=== PATIENT | female | born 1990 | race Caucasian/White ===

== ENCOUNTER 2017-06-20 17:14 | Inpatient (IN) | payer MEDICAID ==
[~2017-06-20] VITALS: Ht 167.6 cm; Wt 55.8 kg
[2017-06-20] MEDS ORDERED: MORPHINE SULFATE 4 MG/ML, 1ML IVPush PRN (18:00)
[2017-06-20] MEDS ORDERED: ONDANSETRON 2MG/ML, 2ML IVPush ONE (18:00)
[2017-06-20] MEDS ORDERED: FAMOTIDINE 20 MG/2 ML IVP ONE (18:00)
[2017-06-20] MEDS ORDERED: SODIUM CHLORIDE FLUSH 10ML SYR IVF ONE (18:00)
[2017-06-20] MEDS ORDERED: SODIUM CHLORIDE 0.9% 1,000ML IVBOLUS ONE ×2 (18:00→19:00)
[2017-06-20] MEDS ORDERED: FAMOTIDINE 20 MG/2 ML ONE (18:06)
[2017-06-20] MEDS ORDERED: ONDANSETRON 2MG/ML, 2ML ONE ×2 (18:06→20:26)
[2017-06-20 18:30] LABS: HEMATOCRIT 40.6 % (34.6-47.8); HEMOGLOBIN 14.3 g/dL (11.7-16.4); WHITE BLOOD COUNT 8.1 x10^3/uL (3.4-10)
[2017-06-20 18:43] LABS: ASPARTATE AMINO TRANSFERASE 33 U/L (15-37); BLOOD UREA NITROGEN 9 mg/dL (7-18)
[2017-06-20] MEDS ORDERED: SODIUM CHLORIDE 0.9% 1,000 ML IV ONE (18:57)
[2017-06-20] MEDS ORDERED: HYDROmorphone 1 MG/ML, 1ML IVPush PRN (19:00)
[2017-06-20] MEDS ORDERED: HYDROmorphone 1 MG/ML, 1ML ONE (19:06)
[2017-06-20] MEDS ORDERED: METOCLOPRAMIDE 5 MG/ML, 2ML IVPush PRN (19:30)
[2017-06-20] MEDS ORDERED: PROMETHAZINE 25 MG/ML, 1ML IM PRN (19:30)
[2017-06-20] MEDS ORDERED: ENOXAPARIN 40 MG/0.4 ML SQ SCH (19:30)
[2017-06-20] MEDS ORDERED: THIAMINE 200 MG in SODIUM CHLORIDE 0.9% 50 ML IV ONE (20:00)
[2017-06-20] MEDS ORDERED: LORazepam 2 MG/ML, 1ML IV PRN ×4 (20:00)
[2017-06-20] MEDS: ONDANSETRON 2MG/ML, 2ML IVPush PRN (20:28)
[2017-06-20] MEDS ORDERED: NICOTINE 14MG/24 HR PATCH.TD24 ONE (20:42)
[2017-06-20] MEDS: NICOTINE 14MG/24 HR PATCH.TD24 TD SCH (20:44)
[2017-06-20] MEDS: LORazepam 2 MG/ML, 1ML IV PRN (21:57)
[2017-06-20 22:00] VITALS: BP 122/82
[2017-06-20] MEDS: SODIUM CHLORIDE 0.9% 1,000 ML IV SCH (23:45)
[2017-06-20] MEDS: HYDROmorphone 2 MG/ML, 1ML IVPush PRN (23:56)
[2017-06-21 01:43] VITALS: BP 106/66
[2017-06-21] MEDS: FOLIC ACID 1 MG, THIAMINE 100 MG, MVI ADULT 10 ML in DEXTROSE 5% 1,000 ML IV SCH (02:15)
[2017-06-21] MEDS: SODIUM CHLORIDE 0.9% 1,000 ML IV SCH ×3 (03:24→19:34)
[2017-06-21 05:54] LABS: BLOOD UREA NITROGEN 7 mg/dL (7-18)
[2017-06-21 05:56] LABS: HEMATOCRIT 38.6 % (34.6-47.8); HEMOGLOBIN 13.1 g/dL (11.7-16.4); WHITE BLOOD COUNT 5.5 x10^3/uL (3.4-10)
[2017-06-21 06:10] LABS: ASPARTATE AMINO TRANSFERASE 23 U/L (15-37)
[2017-06-21 07:26] VITALS: BP 104/68
[2017-06-21] MEDS: HYDROmorphone 2 MG/ML, 1ML IVPush PRN ×3 (08:39→19:34)
[2017-06-21] MEDS: ONDANSETRON 2MG/ML, 2ML IVPush PRN (11:12)
[2017-06-21 13:18] VITALS: BP 113/70
[2017-06-21] MEDS: LORazepam 2 MG/ML, 1ML IV PRN (17:21)
[2017-06-21 19:29] VITALS: BP 131/83
[2017-06-21] MEDS: ENOXAPARIN 40 MG/0.4 ML SQ SCH (19:35)
[2017-06-21] MEDS: NICOTINE 14MG/24 HR PATCH.TD24 TD SCH (19:35)
[2017-06-22 01:17] VITALS: BP 115/73
[2017-06-22] MEDS: FOLIC ACID 1 MG, THIAMINE 100 MG, MVI ADULT 10 ML in DEXTROSE 5% 1,000 ML IV SCH (01:20)
[2017-06-22] MEDS: SODIUM CHLORIDE 0.9% 1,000 ML IV SCH ×2 (01:21→19:26)
[2017-06-22] MEDS: HYDROmorphone 2 MG/ML, 1ML IVPush PRN ×4 (01:21→23:02)
[2017-06-22 05:56] LABS: ASPARTATE AMINO TRANSFERASE 19 U/L (15-37); BLOOD UREA NITROGEN 5 mg/dL (7-18)
[2017-06-22 07:07] VITALS: BP 112/75
[2017-06-22] MEDS ORDERED: POTASSIUM CHLORIDE 40 MEQ in SODIUM CHLORIDE 0.9% 500 ML IV ONE (08:00)
[2017-06-22] MEDS: ONDANSETRON 2MG/ML, 2ML IVPush PRN (11:24)
[2017-06-22] MEDS: PANTOPRAZOLE 40 MG IV IVPush SCH ×2 (11:24→23:02)
[2017-06-22 12:57] VITALS: BP 135/83
[2017-06-22 19:19] VITALS: BP 128/84
[2017-06-22] MEDS: NICOTINE 14MG/24 HR PATCH.TD24 TD SCH (19:26)
[2017-06-22] MEDS: ENOXAPARIN 40 MG/0.4 ML SQ SCH (20:00)
[2017-06-23] MEDS: FOLIC ACID 1 MG, THIAMINE 100 MG, MVI ADULT 10 ML in DEXTROSE 5% 1,000 ML IV SCH (01:25)
[2017-06-23] MEDS: SODIUM CHLORIDE 0.9% 1,000 ML IV SCH ×3 (01:25→23:53)
[2017-06-23 01:32] VITALS: BP 128/82
[2017-06-23 05:26] LABS: BLOOD UREA NITROGEN 3 mg/dL (7-18)
[2017-06-23 07:45] VITALS: BP 121/80
[2017-06-23] MEDS: HYDROmorphone 2 MG/ML, 1ML IVPush PRN ×2 (08:29→22:15)
[2017-06-23] MEDS: PANTOPRAZOLE 40 MG IV IVPush SCH ×2 (10:53→22:29)
[2017-06-23 13:52] VITALS: BP 123/83
[2017-06-23] MEDS ORDERED: POTASSIUM CHLORIDE 40 MEQ in SODIUM CHLORIDE 0.9% 500 ML IV ONE (16:00)
[2017-06-23] MEDS: PANCRELIPASE 24,000 CAPSULE.DR PO SCH ×2 (17:09→21:00)
[2017-06-23 19:24] VITALS: BP 122/76
[2017-06-23] MEDS: ENOXAPARIN 40 MG/0.4 ML SQ SCH (20:00)
[2017-06-23 20:18] VITALS: BP 125/85
[2017-06-23] MEDS: NICOTINE 14MG/24 HR PATCH.TD24 TD SCH (22:16)
[2017-06-24 04:13] VITALS: BP 126/58
[2017-06-24] MEDS: SODIUM CHLORIDE 0.9% 1,000 ML IV SCH ×3 (05:25→21:30)
[2017-06-24 05:31] LABS: BLOOD UREA NITROGEN 4 mg/dL (7-18)
[2017-06-24] MEDS: HYDROmorphone 2 MG/ML, 1ML IVPush PRN ×3 (05:31→18:35)
[2017-06-24 07:03] VITALS: BP 116/74
[2017-06-24] MEDS: PANCRELIPASE 24,000 CAPSULE.DR PO SCH ×3 (08:41→21:00)
[2017-06-24] MEDS: PANTOPRAZOLE 40 MG IV IVPush SCH ×2 (10:26→22:18)
[2017-06-24] MEDS ORDERED: BISACODYL 10 MG SUPP PR PRN (10:30)
[2017-06-24] MEDS ORDERED: POTASSIUM CHLORIDE 40 MEQ in SODIUM CHLORIDE 0.9% 500 ML IV ONE (10:30)
[2017-06-24 14:35] VITALS: BP 130/85
[2017-06-24] MEDS: ENOXAPARIN 40 MG/0.4 ML SQ SCH (20:00)
[2017-06-24] MEDS: NICOTINE 14MG/24 HR PATCH.TD24 TD SCH (20:32)
[2017-06-24 20:59] VITALS: BP 123/80
[2017-06-25 01:56] VITALS: BP 121/80
[2017-06-25] MEDS: SODIUM CHLORIDE 0.9% 1,000 ML IV SCH ×3 (03:39→21:27)
[2017-06-25 05:59] LABS: ASPARTATE AMINO TRANSFERASE 18 U/L (15-37); BLOOD UREA NITROGEN 3 mg/dL (7-18)
[2017-06-25 07:35] VITALS: BP 144/90
[2017-06-25] MEDS ORDERED: POTASSIUM CHLORIDE 40 MEQ in SODIUM CHLORIDE 0.9% 500 ML IV ONE (08:30)
[2017-06-25] MEDS: PANCRELIPASE 24,000 CAPSULE.DR PO SCH ×3 (10:12→21:27)
[2017-06-25] MEDS: LORazepam 2 MG/ML, 1ML IVPush PRN ×2 (10:21→17:32)
[2017-06-25] MEDS: PANTOPRAZOLE 40 MG IV IVPush SCH ×2 (11:41→22:29)
[2017-06-25 14:30] VITALS: BP 125/86
[2017-06-25 19:59] VITALS: BP 120/81
[2017-06-25] MEDS: ENOXAPARIN 40 MG/0.4 ML SQ SCH (20:00)
[2017-06-25] MEDS: NICOTINE 14MG/24 HR PATCH.TD24 TD SCH (20:12)
[2017-06-25] MEDS: HYDROmorphone 2 MG/ML, 1ML IVPush PRN (22:34)
[2017-06-26 02:12] VITALS: BP 114/69
[2017-06-26] MEDS: SODIUM CHLORIDE 0.9% 1,000 ML IV SCH ×3 (04:17→12:42)
[2017-06-26 05:22] LABS: BLOOD UREA NITROGEN 2 mg/dL (7-18)
[2017-06-26 05:27] LABS: ASPARTATE AMINO TRANSFERASE 17 U/L (15-37)
[2017-06-26 07:12] VITALS: BP 143/93
[2017-06-26] MEDS: PANCRELIPASE 24,000 CAPSULE.DR PO SCH ×3 (08:26→16:59)
[2017-06-26] MEDS: LORazepam 2 MG/ML, 1ML IV PRN (10:23)
[2017-06-26] MEDS: PANTOPRAZOLE 40 MG IV IVPush SCH ×2 (10:23→23:34)
[2017-06-26] MEDS ORDERED: POLYETHYLENE GLYCOL 17 GM PACKET PO PRN (13:00)
[2017-06-26 13:38] VITALS: BP 133/79
[2017-06-26] MEDS ORDERED: POTASSIUM CHLORIDE 40 MEQ in SODIUM CHLORIDE 0.9% 500 ML IV ONE (14:30)
[2017-06-26] MEDS: OXYcodone IR 5MG TABLET PO PRN ×2 (15:20→23:34)
[2017-06-26 19:41] VITALS: BP 117/75
[2017-06-26] MEDS: ENOXAPARIN 40 MG/0.4 ML SQ SCH (20:00)
[2017-06-26] MEDS: NICOTINE 14MG/24 HR PATCH.TD24 TD SCH (20:24)
[2017-06-27] MEDS: LORazepam 2 MG/ML, 1ML IVPush PRN ×3 (01:00→14:36)
[2017-06-27] MEDS ORDERED: OXYcodone IR 5MG TABLET PO PRN (01:00)
[2017-06-27 01:20] VITALS: BP 122/74
[2017-06-27 07:25] VITALS: BP 126/82
[2017-06-27] MEDS: SODIUM CHLORIDE 0.9% 1,000 ML IV SCH (07:45)
[2017-06-27] MEDS: PANTOPRAZOLE 40 MG IV IVPush SCH (09:49)
[2017-06-27] MEDS ORDERED: PANCRELIPASE 24,000 CAPSULE.DR PO ONE ×2 (10:00→13:00)
[2017-06-27 13:01] VITALS: BP 117/76
[2017-06-27] MEDS ORDERED: MULT-6 PO (13:45)
[2017-06-27] MEDS ORDERED: OXYC5TAB3 PO (13:45)
[2017-06-27] MEDS ORDERED: FOLI-17 PO (13:45)
[2017-06-27] MEDS ORDERED: THIA100T10 PO (13:45)
[2017-06-27] MEDS ORDERED: TRAM50TA2 PO (13:45)
[2017-06-27] MEDS ORDERED: NICO1PAT13 TD (13:45)
[2017-06-27] MEDS ORDERED: MAGN400T26 PO (13:45)
[2017-06-27] MEDS ORDERED: LIPA1CAP61 PO (13:45)
[2017-06-27] MEDS ORDERED: ONDA4TAB13 SL (13:45)
[2017-06-27] MEDS ORDERED: POLY17PO5 PO (13:45)
[2017-06-27] MEDS: PANCRELIPASE 24,000 CAPSULE.DR PO SCH (16:12)
== END 2017-06-27 18:00 | disposition home or self-care (01) | DRG 438 ==
LOC: ED 18:47 → EDIP 19:00 → CCU 22:52 → EDIP 22:58 → 3NE 23:35
PROVIDERS: ADMIT Internal Medicine; ATTEND Internal Medicine
DX: K85.20 Alcohol induced acute pancreatitis without necrosis or infection (principal); E43 Unspecified severe protein-calorie malnutrition; K56.7 Ileus, unspecified; E87.1 Hypo-osmolality and hyponatremia; F10.239 Alcohol dependence with withdrawal, unspecified; Z68.1 Body mass index [BMI] 19.9 or less, adult; K86.1 Other chronic pancreatitis; E87.6 Hypokalemia; Z82.49 Family history of ischemic heart disease and other diseases of the circulatory system; Z82.5 Family history of asthma and other chronic lower respiratory diseases
CPT/HCPCS: 36415; 76700; 76705; 80048; 80053; 80061; 81003; 82150; 83690; 83735; 84100; 84443; 84703; 85025; 96361; 96374; 96375; J1170; J1650; J2405; J3411; J3480; J7070; C9113; J2060; J7030; J7040; S0028

== ENCOUNTER 2017-10-14 15:44 | Emergency (ER) | payer MEDICAID ==
[~2017-10-14] VITALS: Ht 167.6 cm; Wt 56.7 kg
[~2017-10-14 15:44] MED LIST: FOLI-17 PO; LIPA1CAP61 PO; MAGN400T26 PO; MULT-6 PO; NICO-486 TD; ONDA4TAB13 SL; OXYC5TAB3 PO; POLY17PO5 PO; THIA100T10 PO; TRAM50TA2 PO
[2017-10-14] MEDS ORDERED: SODIUM CHLORIDE FLUSH 10ML SYR IVF ONE (16:30)
[2017-10-14 16:41] LABS: BASOPHILS # (AUTO) 0.04 x10^3/uL (0-0.1); BASOPHILS % (AUTO) 1 % (0-1); EOSINOPHILS # (AUTO) 0.03 x10^3/uL (0-0.4); EOSINOPHILS % (AUTO) 0 % (1-7); LYMPHOCYTES % (AUTO) 34 % (22-44); MD NO; MEAN CORPUSCULAR HEMOGLOBIN 31.2 pg (27.0-34.8); MEAN CORPUSCULAR HGB CONC 33.7 g/dL (32.4-35.8); MEAN CORPUSCULAR VOLUME 92.5 fL (80-100); MONOCYTES # (AUTO) 0.53 x10^3/uL (0.2-0.8); MONOCYTES % (AUTO) 7 % (2-9); NEUTROPHILS # (AUTO) 4.66 x10^3/uL (1.8-6.8); NEUTROPHILS % (AUTO) 59 % (42-75); PLATELET COUNT 205 x10^3/uL (130-400); RED BLOOD COUNT 5.02 x10^6/uL (3.82-5.3); RED CELL DISTRIBUTION WIDTH 16.1 % (9.6-15.2)
[2017-10-14 16:53] LABS: ALANINE AMINOTRANSFERASE 48 U/L (12-78); ALBUMIN 4.2 g/dL (3.4-5.0); ANION GAP 8 mmol/L (5-15); CALCIUM 8.3 mg/dL (8.5-10.1); CHLORIDE 108 mmol/L (98-107)
[2017-10-14 16:58] LABS: ALKALINE PHOSPHATASE 99 U/L (45-117); BILIRUBIN,TOTAL 0.3 mg/dL (0.2-1.0); CREATININE 0.78 mg/dL (0.55-1.02); TOTAL PROTEIN 8.5 g/dL (6.4-8.2)
[2017-10-14 17:12] LABS: CULTURE INDICATED? YES; MICROSCOPIC INDICATED
[2017-10-14 18:43] VITALS: BP 116/78
== END 2017-10-14 19:02 | disposition home or self-care (01) ==
LOC: ED 18:55
DX: N30.00 Acute cystitis without hematuria (principal); N80.9 Endometriosis, unspecified
CPT/HCPCS: 36415; 74018; 80053; 81001; 83690; 84703; 85025; 87086; 99285

== ENCOUNTER 2017-10-23 00:30 | Emergency (ER) | payer MEDICAID ==
[~2017-10-23] VITALS: Ht 167.6 cm; Wt 54.9 kg
[2017-10-23] MEDS ORDERED: METOCLOPRAMIDE 5 MG/ML, 2ML IVPush ONE (01:00)
[2017-10-23] MEDS ORDERED: SODIUM CHLORIDE FLUSH 10ML SYR IVF ONE (01:00)
[2017-10-23] MEDS ORDERED: SODIUM CHLORIDE 0.9% 1,000ML IVBOLUS ONE (01:00)
[2017-10-23] MEDS ORDERED: ONDANSETRON 2MG/ML, 2ML IVPush ONE (01:00)
[2017-10-23] MEDS ORDERED: METOCLOPRAMIDE 5 MG/ML, 2ML ONE (01:02)
[2017-10-23] MEDS ORDERED: ONDANSETRON 2MG/ML, 2ML ONE (01:02)
[2017-10-23 01:47] LABS: BASOPHILS # (AUTO) 0.02 x10^3/uL (0-0.1); BASOPHILS % (AUTO) 0 % (0-1); EOSINOPHILS # (AUTO) 0.01 x10^3/uL (0-0.4); EOSINOPHILS % (AUTO) 0 % (1-7); LYMPHOCYTES # (AUTO) 2.64 x10^3/uL (1-3.4); LYMPHOCYTES % (AUTO) 50 % (22-44); MD NO; MEAN CORPUSCULAR HEMOGLOBIN 31.3 pg (27.0-34.8); MEAN CORPUSCULAR HGB CONC 33.8 g/dL (32.4-35.8); MEAN CORPUSCULAR VOLUME 92.7 fL (80-100); MEAN PLATELET VOLUME 8.2 fL (7.4-10.4); MONOCYTES # (AUTO) 0.34 x10^3/uL (0.2-0.8); MONOCYTES % (AUTO) 7 % (2-9); NEUTROPHILS # (AUTO) 2.23 x10^3/uL (1.8-6.8); NEUTROPHILS % (AUTO) 43 % (42-75); PLATELET COUNT 201 x10^3/uL (130-400); RED BLOOD COUNT 5.08 x10^6/uL (3.82-5.3); RED CELL DISTRIBUTION WIDTH 15.4 % (9.6-15.2)
[2017-10-23 01:59] LABS: ALANINE AMINOTRANSFERASE 39 U/L (12-78); ALBUMIN 3.9 g/dL (3.4-5.0); ANION GAP 15 mmol/L (5-15); CALCIUM 8.4 mg/dL (8.5-10.1); CHLORIDE 104 mmol/L (98-107); CREATININE 0.57 mg/dL (0.55-1.02)
[2017-10-23 02:04] LABS: ALKALINE PHOSPHATASE 126 U/L (45-117); BILIRUBIN,TOTAL 0.5 mg/dL (0.2-1.0); TOTAL PROTEIN 7.8 g/dL (6.4-8.2)
[2017-10-23 04:10] VITALS: BP 149/95
[2017-10-23 04:29] LABS: MICROSCOPIC NOT IND
[2017-10-23 04:32] LABS: CULTURE INDICATED? NO
== END 2017-10-23 04:49 | disposition home or self-care (01) ==
LOC: ED 00:43
DX: R10.84 Generalized abdominal pain (principal); R11.2 Nausea with vomiting, unspecified; G89.29 Other chronic pain; K86.1 Other chronic pancreatitis; F10.129 Alcohol abuse with intoxication, unspecified
CPT/HCPCS: 36415; 80053; 81003; 83690; 84703; 85025; 96361; 96374; 96375; 99285; J2405; J2765; J7030

== ENCOUNTER 2018-04-17 23:17 | Emergency (ER) | payer MEDICAID ==
[~2018-04-17] VITALS: Ht 167.6 cm; Wt 55.0 kg
[~2018-04-17 23:17] MED LIST changes: +ACET-1600 PO; +NICO-485 TD
[2018-04-18 00:01] LABS: BASOPHILS # (AUTO) 0.03 x10^3/uL (0-0.1); BASOPHILS % (AUTO) 0 % (0-1); EOSINOPHILS # (AUTO) 0.04 x10^3/uL (0-0.4); EOSINOPHILS % (AUTO) 1 % (1-7); LYMPHOCYTES # (AUTO) 2.71 x10^3/uL (1-3.4); LYMPHOCYTES % (AUTO) 47 % (22-44); MD NO; MEAN CORPUSCULAR HEMOGLOBIN 34.9 pg (27.0-34.8); MEAN CORPUSCULAR HGB CONC 33.8 g/dL (32.4-35.8); MEAN CORPUSCULAR VOLUME 103.1 fL (80-100); MEAN PLATELET VOLUME 8.2 fL (7.4-10.4); MONOCYTES # (AUTO) 0.46 x10^3/uL (0.2-0.8); MONOCYTES % (AUTO) 8 % (2-9); NEUTROPHILS # (AUTO) 2.59 x10^3/uL (1.8-6.8); NEUTROPHILS % (AUTO) 45 % (42-75); PLATELET COUNT 220 x10^3/uL (130-400); RED BLOOD COUNT 4.15 x10^6/uL (3.82-5.3); RED CELL DISTRIBUTION WIDTH 13.9 % (9.6-15.2)
[2018-04-18 00:11] LABS: ALANINE AMINOTRANSFERASE 48 U/L (12-78); ALBUMIN 3.3 g/dL (3.4-5.0); ANION GAP 11 mmol/L (5-15); CALCIUM 8.1 mg/dL (8.5-10.1); CHLORIDE 110 mmol/L (98-107); CREATININE 0.78 mg/dL (0.55-1.02)
[2018-04-18 00:16] LABS: ALKALINE PHOSPHATASE 129 U/L (45-117); BILIRUBIN,TOTAL 0.3 mg/dL (0.2-1.0); TOTAL PROTEIN 7.3 g/dL (6.4-8.2); TROPONIN I < 0.015 ng/mL (0.000-0.045)
[2018-04-18 02:50] VITALS: BP 112/76
== END 2018-04-18 03:39 | disposition home or self-care (01) ==
LOC: ED 04-18 02:39
DX: F10.120 Alcohol abuse with intoxication, uncomplicated (principal)
CPT/HCPCS: 36415; 71045; 80053; 83690; 84484; 85025; 93005; 99285

== ENCOUNTER 2018-06-22 11:53 | Emergency (ER) | payer MEDICAID ==
[~2018-06-22] VITALS: Ht 167.6 cm; Wt 55.0 kg
[2018-06-22] MEDS ORDERED: LORazepam 2 MG/ML, 1ML ONE (11:55)
[2018-06-22] MEDS ORDERED: SODIUM CHLORIDE 0.9% 1,000 ML IV ONE (11:56)
[2018-06-22] MEDS ORDERED: LORazepam 2 MG/ML, 1ML IVPush ONE (12:00)
[2018-06-22] MEDS ORDERED: SODIUM CHLORIDE FLUSH 10ML SYR IVF ONE (12:00)
[2018-06-22] MEDS ORDERED: PLEASE ENTER HEIGHT AND WEIGHT MC SCH (12:00)
[2018-06-22 12:18] LABS: BASOPHILS # (AUTO) 0.01 x10^3/uL (0-0.1); BASOPHILS % (AUTO) 0 % (0-1); EOSINOPHILS # (AUTO) 0.01 x10^3/uL (0-0.4); EOSINOPHILS % (AUTO) 0 % (1-7); LYMPHOCYTES # (AUTO) 0.93 x10^3/uL (1-3.4); LYMPHOCYTES % (AUTO) 12 % (22-44); MD NO; MEAN CORPUSCULAR HEMOGLOBIN 35.4 pg (27.0-34.8); MEAN CORPUSCULAR HGB CONC 34.1 g/dL (32.4-35.8); MEAN CORPUSCULAR VOLUME 103.8 fL (80-100); MEAN PLATELET VOLUME 8.2 fL (7.4-10.4); MONOCYTES # (AUTO) 0.51 x10^3/uL (0.2-0.8); MONOCYTES % (AUTO) 7 % (2-9); NEUTROPHILS # (AUTO) 6.19 x10^3/uL (1.8-6.8); NEUTROPHILS % (AUTO) 81 % (42-75); PLATELET COUNT 191 x10^3/uL (130-400); RED BLOOD COUNT 4.04 x10^6/uL (3.82-5.3); RED CELL DISTRIBUTION WIDTH 16.2 % (9.6-15.2)
[2018-06-22 12:27] LABS: ALANINE AMINOTRANSFERASE 55 U/L (12-78); ALBUMIN 3.8 g/dL (3.4-5.0); ANION GAP 14 mmol/L (5-15); CALCIUM 8.8 mg/dL (8.5-10.1); CHLORIDE 107 mmol/L (98-107); CREATININE 0.85 mg/dL (0.55-1.02)
[2018-06-22 12:31] LABS: ALKALINE PHOSPHATASE 101 U/L (45-117); BILIRUBIN,TOTAL 0.8 mg/dL (0.2-1.0); TOTAL PROTEIN 7.4 g/dL (6.4-8.2)
[2018-06-22 13:46] VITALS: BP 120/81
== END 2018-06-22 13:49 | disposition home or self-care (01) ==
LOC: ED 13:00
DX: G40.309 Generalized idiopathic epilepsy and epileptic syndromes, not intractable, without status epilepticus (principal); F17.200 Nicotine dependence, unspecified, uncomplicated; Z88.0 Allergy status to penicillin; Z88.5 Allergy status to narcotic agent; Z88.6 Allergy status to analgesic agent
CPT/HCPCS: 36415; 70450; 80053; 80307; 84703; 85025; 93005; 96374; 99285; J2060; J7030

== ENCOUNTER 2018-11-21 23:00 | Emergency (ER) | payer MEDICAID ==
[~2018-11-21] VITALS: Ht 167.6 cm; Wt 57.0 kg
[2018-11-21 23:02] VITALS: BP 126/78
--- NOTE | 2018-11-21 23:41 | NUR ---
PT GIVEN DC INSTRUCTIONS. PT AMB TO DC WITH STEADY GAIT. NO ACUTE DISTRESS AT DC.
== END 2018-11-21 23:41 | disposition home or self-care (01) ==
LOC: ED 23:27
DX: S90.422A Blister (nonthermal), left great toe, initial encounter (principal); S90.421A Blister (nonthermal), right great toe, initial encounter; B35.1 Tinea unguium; J45.909 Unspecified asthma, uncomplicated; X58.XXXA Exposure to other specified factors, initial encounter; Y93.89 Activity, other specified; Y92.89 Other specified places as the place of occurrence of the external cause; Y99.8 Other external cause status
CPT/HCPCS: 99281; 99284

== ENCOUNTER 2019-08-14 05:16 | Emergency (ER) | payer MEDICAID ==
[~2019-08-14] VITALS: Ht 167.6 cm; Wt 60.1 kg
[2019-08-14] MEDS ORDERED: GABA600T7 PO (05:36)
[2019-08-14] MEDS ORDERED: ACYC-57 PO (05:36)
[2019-08-14] MEDS ORDERED: PRENATAL VITAMINS (05:36)
[2019-08-14] MEDS ORDERED: FOLIC ACID (05:36)
[2019-08-14] MEDS ORDERED: QUET25TA5 PO (05:36)
[2019-08-14] MEDS ORDERED: ACYC-114 PO (05:36)
--- NOTE | 2019-08-14 05:36 | NUR ---
REPORTS PRODUCTIVE COUGH, GREEN PHLEGM, SEVERAL DAYS, HAS FELT PERHAPS SOME FEVERS, STATES 11WEEKS , HAD US LAST WEEK AT OB OFFICE, IS SEEING A MESMERIST. NO PROBLEMS WITH BABY THIS AM
[2019-08-14 06:20] VITALS: BP 100/68
== END 2019-08-14 06:23 | disposition home or self-care (01) ==
LOC: ED 05:48
DX: J00 Acute nasopharyngitis [common cold] (principal); J45.909 Unspecified asthma, uncomplicated; F17.200 Nicotine dependence, unspecified, uncomplicated; Z88.0 Allergy status to penicillin; Z88.5 Allergy status to narcotic agent
CPT/HCPCS: 99283

== ENCOUNTER 2020-02-21 18:07 | Inpatient (IN) | payer MEDICAID ==
[~2020-02-21] VITALS: Ht 167.6 cm; Wt 75.9 kg
[~2020-02-21 18:07] MED LIST changes: +ACYC-114 PO; +ACYC-57 PO; +FOLIC ACID; +GABA600T7 PO; +PRENATAL VITAMINS; +QUET25TA5 PO
[2020-02-21] MEDS ORDERED: LACTATED RINGERS 1,000 ML IV SCH ×2 (18:28→18:45)
[2020-02-21] MEDS ORDERED: D5%-LACTATED RINGERS 1,000 ML IV SCH (18:28)
[2020-02-21] MEDS ORDERED: OXYTOCIN 30U/ 0.9% NaCL 500ML 500 ML IV ONE (18:28)
[2020-02-21] MEDS ORDERED: CALCIUM CARBONATE 500 MG TAB.CHEW PO PRN (18:30)
[2020-02-21] MEDS ORDERED: VANCOMYCIN PMX 1GM/200ML 200 ML IVPB SCH (18:30)
[2020-02-21] MEDS ORDERED: TERBUTALINE 1 MG/ML, 1ML IVPush PRN (18:30)
[2020-02-21] MEDS ORDERED: TERBUTALINE 1 MG/ML, 1ML SQ PRN (18:30)
[2020-02-21] MEDS ORDERED: FENTANYL PF 100 MCG/2ML IV PRN (18:30)
[2020-02-21] MEDS ORDERED: ONDANSETRON 2MG/ML, 2ML IVPush PRN (18:30)
[2020-02-21] MEDS ORDERED: NEWBORN KIT ONE (18:31)
[2020-02-21] MEDS ORDERED: LIDOCAINE 1%, 20ML ONE (18:31)
[2020-02-21] MEDS ORDERED: MISOPROSTOL 200 MCG TABLET ONE (18:32)
[2020-02-21] MEDS ORDERED: FENTANYL PF 100 MCG/2ML ONE ×2 (18:32→20:11)
[2020-02-21] MEDS ORDERED: OXYTOCIN 30U/ 0.9% NaCL 500ML 500 ML ONE (18:32)
[2020-02-21] MEDS ORDERED: FENTANYL/BUPIV./NS/PF 250 ML EPIDCONT SCH (18:45)
[2020-02-21] MEDS ORDERED: BUPIVACAINE 0.25% ONE ×3 (18:47→20:29)
[2020-02-21] MEDS: FENTANYL PF 100 MCG/2ML IVPush PRN ×2 (18:51→20:14)
[2020-02-21 18:59] LABS: BASOPHILS # (AUTO) 0.03 x10^3/uL (0-0.1); BASOPHILS % (AUTO) 0 % (0-1); EOSINOPHILS # (AUTO) 0.02 x10^3/uL (0-0.4); EOSINOPHILS % (AUTO) 0 % (1-7); LYMPHOCYTES # (AUTO) 1.87 x10^3/uL (1-3.4); LYMPHOCYTES % (AUTO) 20 % (22-44); MD NO; MEAN CORPUSCULAR HEMOGLOBIN 31.3 pg (27.0-34.8); MEAN CORPUSCULAR HGB CONC 33.4 g/dL (32.4-35.8); MEAN CORPUSCULAR VOLUME 93.6 fL (80-100); MEAN PLATELET VOLUME 9.7 fL (7.4-10.4); MONOCYTES # (AUTO) 0.78 x10^3/uL (0.2-0.8); MONOCYTES % (AUTO) 8 % (2-9); NEUTROPHILS # (AUTO) 6.73 x10^3/uL (1.8-6.8); NEUTROPHILS % (AUTO) 71 % (42-75); PLATELET COUNT 209 x10^3/uL (130-400); RED BLOOD COUNT 3.49 x10^6/uL (3.82-5.3); RED CELL DISTRIBUTION WIDTH 13.4 % (9.6-15.2)
[2020-02-21] MEDS ORDERED: LACTATED RINGERS 1,000 ML IVBOLUS PRN (19:00)
[2020-02-21] MEDS ORDERED: PLEASE ENTER HEIGHT AND WEIGHT MC SCH (19:00)
[2020-02-21] MEDS ORDERED: EPHEDRINE 50 MG/ML, 1ML IVPush PRN (19:00)
[2020-02-21 19:10] LABS: ALANINE AMINOTRANSFERASE 11 U/L (12-78); ALBUMIN 2.6 g/dL (3.4-5.0); ANION GAP 9 mmol/L (5-15); CALCIUM 8.4 mg/dL (8.5-10.1); CHLORIDE 110 mmol/L (98-107); CREATININE 0.62 mg/dL (0.55-1.02)
[2020-02-21 19:12] LABS: ALKALINE PHOSPHATASE 222 U/L (45-117); BILIRUBIN,TOTAL 0.3 mg/dL (0.2-1.0); TOTAL PROTEIN 6.7 g/dL (6.4-8.2)
[2020-02-21 19:18] LABS: AMPHETAMINE SCREEN, URINE Negative (Negative); BARBITURATE SCREEN, URINE Negative (Negative); BENZODIAZEPINE SCREEN, URINE Negative (Negative); CANNABINOID SCREEN, URINE Negative (Negative); COCAINE SCREEN, URINE Negative (Negative); METHADONE SCREEN, URINE Negative (Negative); OPIATE SCREEN, URINE Negative (Negative)
[2020-02-21] MEDS ORDERED: FENTANYL PF 500 MCG, BUPIVACAINE/PF 0.5%, 30ML 62.5 ML in SODIUM CHLORIDE 0.9% 177.5 ML EPIDCONT SCH (19:30)
[2020-02-22] MEDS ORDERED: FENTANYL PF 100 MCG/2ML ONE (02:51)
[2020-02-22] MEDS ORDERED: OXYTOCIN 30U/ 0.9% NaCL 500ML 500 ML ONE (03:03)
[2020-02-22] MEDS ORDERED: IBUPROFEN 600 MG TABLET ONE (03:20)
[2020-02-22] MEDS ORDERED: OXYcodone/APAP 5/325MG TABLET ONE (03:21)
[2020-02-22] MEDS: OXYcodone/APAP 5/325MG TABLET PO PRN ×2 (03:27→03:28)
[2020-02-22] MEDS: IBUPROFEN 600 MG TABLET PO PRN ×4 (03:28→22:36)
[2020-02-22] MEDS ORDERED: ACETAMINOPHEN 325 MG TABLET PO PRN (03:30)
[2020-02-22] MEDS ORDERED: ONDANSETRON 2MG/ML, 2ML IV PRN (03:30)
[2020-02-22] MEDS ORDERED: SIMETHICONE 80 MG CHEW TAB PO PRN (03:30)
[2020-02-22] MEDS ORDERED: MISOPROSTOL 200 MCG TABLET PR PRN (03:30)
[2020-02-22] MEDS: OXYTOCIN 30U/ 0.9% NaCL 500ML 500 ML IV SCH ×3 (03:30→23:20)
[2020-02-22] MEDS ORDERED: METHYLERGONOVINE 0.2 MG/ML IM PRN (03:30)
[2020-02-22 05:15] VITALS: BP 111/71
[2020-02-22] MEDS: DOCUSATE 100 MG CAPSULE PO PRN ×2 (07:29→19:49)
[2020-02-22] MEDS: FERROUS SULFATE 325 MG TABLET PO SCH (07:29)
[2020-02-22] MEDS: PRENATAL VIT/IRON/FA 1 EACH TABLET PO SCH (07:29)
[2020-02-22 07:30] VITALS: BP 100/54
[2020-02-22] MEDS: OXYcodone IR 5MG TABLET PO PRN ×4 (07:31→19:50)
[2020-02-22 10:41] LABS: MEAN CORPUSCULAR HEMOGLOBIN 30.8 pg (27.0-34.8); MEAN CORPUSCULAR HGB CONC 32.9 g/dL (32.4-35.8); MEAN CORPUSCULAR VOLUME 93.6 fL (80-100); MEAN PLATELET VOLUME 9.5 fL (7.4-10.4); PLATELET COUNT 165 x10^3/uL (130-400); RED CELL DISTRIBUTION WIDTH 13.2 % (9.6-15.2)
[2020-02-22 10:59] LABS: BASOPHILS # (AUTO) 0.03 x10^3/uL (0-0.1); BASOPHILS % (AUTO) 0 % (0-1); EOSINOPHILS # (AUTO) 0.02 x10^3/uL (0-0.4); EOSINOPHILS % (AUTO) 0 % (1-7); LYMPHOCYTES # (AUTO) 1.49 x10^3/uL (1-3.4); LYMPHOCYTES % (AUTO) 12 % (22-44); MD SCAN; MONOCYTES # (AUTO) 0.75 x10^3/uL (0.2-0.8); MONOCYTES % (AUTO) 6 % (2-9); NEUTROPHILS % (AUTO) 81 % (42-75)
[2020-02-22 12:07] VITALS: BP 108/61
[2020-02-22] MEDS ORDERED: CALCIUM CARBONATE 500 MG TAB.CHEW PO PRN (13:30)
[2020-02-22] MEDS: NICOTINE 7 MG/24 HR PATCH.TD24 TD SCH (15:50)
[2020-02-22 16:21] VITALS: BP 103/64
[2020-02-22] MEDS ORDERED: GABAPENTIN 100 MG CAPSULE PO ONE (16:30)
[2020-02-22 19:40] VITALS: BP 117/74
[2020-02-22] MEDS: QUETIAPINE 25MG TABLET PO SCH (22:36)
[2020-02-23] VITALS: BP 113/72
[2020-02-23] MEDS: OXYcodone IR 5MG TABLET PO PRN ×2 (00:04→03:52)
[2020-02-23] MEDS: IBUPROFEN 600 MG TABLET PO PRN ×2 (03:51→19:59)
[2020-02-23] MEDS: DOCUSATE 100 MG CAPSULE PO PRN ×2 (07:23→19:59)
[2020-02-23] MEDS: FERROUS SULFATE 325 MG TABLET PO SCH (07:23)
[2020-02-23] MEDS: PRENATAL VIT/IRON/FA 1 EACH TABLET PO SCH (07:23)
[2020-02-23] MEDS: OXYcodone/APAP 5/325MG TABLET PO PRN ×4 (07:26→20:04)
[2020-02-23 07:45] VITALS: BP 110/68
[2020-02-23] MEDS: NICOTINE 7 MG/24 HR PATCH.TD24 TD SCH (15:42)
[2020-02-23 21:40] VITALS: BP 114/67
[2020-02-24] MEDS: QUETIAPINE 25MG TABLET PO SCH (00:18)
[2020-02-24] MEDS: OXYcodone/APAP 5/325MG TABLET PO PRN ×3 (00:19→09:56)
[2020-02-24] MEDS: IBUPROFEN 600 MG TABLET PO PRN ×2 (04:51→11:29)
[2020-02-24 08:05] VITALS: BP 111/69
[2020-02-24] MEDS: PRENATAL VIT/IRON/FA 1 EACH TABLET PO SCH (09:56)
[2020-02-24] MEDS: DOCUSATE 100 MG CAPSULE PO PRN (09:57)
[2020-02-24] MEDS: FERROUS SULFATE 325 MG TABLET PO SCH (09:57)
[2020-02-24] MEDS ORDERED: DOCU-131 PO (10:27)
[2020-02-24] MEDS ORDERED: IBUP-1222 PO (10:28)
[2020-02-24] MEDS ORDERED: FERR324T5 PO (10:29)
[2020-02-24] MEDS ORDERED: OXYC-302 PO (10:30)
== END 2020-02-24 12:10 | disposition home or self-care (01) | DRG 806 ==
LOC: LDOP 18:07 → LDIP 18:28 → 2NW 02-22 04:58
PROVIDERS: ADMIT Obstetrics & Gynecology Maternal & Fetal Medicine; ATTEND Obstetrics & Gynecology Maternal & Fetal Medicine
PROC: 10E0XZZ Delivery of Products of Conception, External Approach (ICD-10-PCS; principal; 2020-02-22)
PROC: 0KQM0ZZ Repair Perineum Muscle, Open Approach (ICD-10-PCS; 2020-02-22)
PROC: 3E0R3BZ Introduction of Anesthetic Agent into Spinal Canal, Percutaneous Approach (ICD-10-PCS; 2020-02-22)
PROC: 00HU33Z Insertion of Infusion Device into Spinal Canal, Percutaneous Approach (ICD-10-PCS; 2020-02-22)
DX: O77.0 Labor and delivery complicated by meconium in amniotic fluid (principal); O98.52 Other viral diseases complicating childbirth; Z37.0 Single live birth; O99.824 Streptococcus B carrier state complicating childbirth; Z3A.39 39 weeks gestation of pregnancy; B00.9 Herpesviral infection, unspecified; O26.893 Other specified pregnancy related conditions, third trimester; Z67.41 Type O blood, Rh negative; Z88.0 Allergy status to penicillin; F32.9 Major depressive disorder, single episode, unspecified; F41.9 Anxiety disorder, unspecified; O99.344 Other mental disorders complicating childbirth; F17.210 Nicotine dependence, cigarettes, uncomplicated; O99.334 Smoking (tobacco) complicating childbirth; O70.1 Second degree perineal laceration during delivery; O99.03 Anemia complicating the puerperium; D64.9 Anemia, unspecified
CPT/HCPCS: 36415; 80053; 80307; 82150; 83690; 84112; 85025; 86592; 86850; 86900; G0378; J3010; J3370; J2590; J7120

== ENCOUNTER 2021-01-16 16:41 | Emergency (ER) | payer MEDICAID ==
[~2021-01-16] VITALS: Ht 167.6 cm; Wt 55.3 kg
[~2021-01-16 16:41] MED LIST changes: -ACYC-114 PO; +ACYC-40 PO; +DOCU-131 PO; +FERR324T5 PO; -FOLI-17 PO; +FOLI1TAB32 PO; +IBUP-1222 PO; +OXYC1TAB12 PO; -OXYC5TAB3 PO; +OXYC5TAB98 PO
[2021-01-16 17:42] LABS: BASOPHILS % (AUTO) 1 % (0-1); EOSINOPHILS % (AUTO) 2 % (1-7); LYMPHOCYTES % (AUTO) 29 % (22-44); MEAN CORPUSCULAR HEMOGLOBIN 30.3 pg (27.0-34.8); MEAN CORPUSCULAR HGB CONC 33.4 g/dL (32.4-35.8); MEAN PLATELET VOLUME 8.8 fL (7.4-10.4); MONOCYTES % (AUTO) 11 % (2-9); NEUTROPHILS % (AUTO) 58 % (42-75); PLATELET COUNT 208 x10^3/uL (130-400); RED BLOOD COUNT 4.19 x10^6/uL (3.82-5.3); RED CELL DISTRIBUTION WIDTH 13.3 % (9.6-15.2)
[2021-01-16 17:50] LABS: MICROSCOPIC NOT IND
[2021-01-16 17:54] LABS: ALANINE AMINOTRANSFERASE 28 U/L (12-78); ALBUMIN 3.7 g/dL (3.4-5.0); ANION GAP 6 mmol/L (5-15); CALCIUM 8.8 mg/dL (8.5-10.1); CHLORIDE 110 mmol/L (98-107)
[2021-01-16 17:59] LABS: ALKALINE PHOSPHATASE 90 U/L (45-117); BILIRUBIN,TOTAL 0.4 mg/dL (0.2-1.0); CREATININE 0.69 mg/dL (0.55-1.02); TOTAL PROTEIN 7.3 g/dL (6.4-8.2)
--- NOTE | 2021-01-16 18:05 | NUR ---
info analyst: pt from lobby to room 12
--- NOTE | 2021-01-16 18:19 | NUR ---
Pt sitting up in bed, talking with creel clerk, [email or web address], no acute distress noted overtly.
[2021-01-16] MEDS ORDERED: LIPA1CAP45 PO (18:31)
--- NOTE | 2021-01-16 18:32 | NUR ---
at bedside for exam.
[2021-01-16] MEDS ORDERED: PROMETHAZINE 25 MG/ML, 1ML ONE (18:54)
[2021-01-16] MEDS ORDERED: MAALOX/HYOSCYAMINE/LIDOCAINE 45 ML BTL ONE (18:55)
[2021-01-16] MEDS ORDERED: MAALOX/HYOSCYAMINE/LIDOCAINE 45 ML BTL PO ONE (19:00)
[2021-01-16] MEDS ORDERED: PROMETHAZINE 25 MG/ML, 1ML IM ONE (19:00)
--- NOTE | 2021-01-16 19:00 | NUR ---
Pt IV started and medicated. Awaiting CT now.
--- NOTE | 2021-01-16 20:03 | NUR ---
Pt returned from CT at this time.
[2021-01-16] MEDS ORDERED: OMNIPAQUE 350 MG/ML, 100ML BOTTLE ONE (20:12)
--- NOTE | 2021-01-16 20:49 | NUR ---
CT results reviewed and chart marked for recheck.
[2021-01-16] MEDS ORDERED: OXYcodone/APAP 5/325MG TABLET ONE (20:54)
[2021-01-16] MEDS ORDERED: OXYcodone/APAP 10/325MG TABLET ONE (20:58)
[2021-01-16] MEDS ORDERED: OXYcodone/APAP 10/325MG TABLET PO ONE (21:00)
[2021-01-16 21:11] VITALS: BP 116/73
== END 2021-01-16 21:13 | disposition home or self-care (01) ==
LOC: ED 18:17
DX: K85.00 Idiopathic acute pancreatitis without necrosis or infection (principal); J45.909 Unspecified asthma, uncomplicated; R11.2 Nausea with vomiting, unspecified; Z88.0 Allergy status to penicillin
CPT/HCPCS: 36415; 74177; 80053; 81003; 83690; 84703; 85025; 96372; 99284; J2550; Q9967